=== PATIENT | male | born 1975 | race American Indian/Alaskan Native ===

== ENCOUNTER 2017-06-14 16:14 | Emergency (ER) | payer MEDICARE ==
[2017-06-14 17:41] LABS: Basophils % (Auto) 0.8 % (0.0-1.8); Hematocrit 45.1 % (35.5-45.6); Hemoglobin 14.7 gm/dl (11.8-15.2); Mean Corpuscular HGB Conc 33 % (32-34); Mean Corpuscular Hemoglobin 27 pg (28-32); Mean Corpuscular Volume 82 fl (84-94); Platelet Count 246 K/mm3 (140-440); Red Blood Count 5.53 M/mm3 (3.65-5.03); Red Cell Distribution Width 15.6 % (13.2-15.2); White Blood Count 7.1 K/mm3 (4.5-11.0)
[2017-06-14 17:55] LABS: INR 0.99 (0.87-1.13); Partial Thromboplastin Time 28.7 Sec. (24.2-36.6)
[2017-06-14 18:02] LABS: Anion Gap 19 mmol/L; BUN/Creatinine Ratio 21; Blood Urea Nitrogen 19 mg/dL (9-20); Calcium 9.2 mg/dL (8.4-10.2); Carbon Dioxide 23 mmol/L (22-30); Chloride 99.7 mmol/L (98-107); Glucose 131 mg/dL (75-100); Potassium 4.1 mmol/L (3.6-5.0); Sodium 138 mmol/L (137-145)
--- NOTE | 2017-06-14 20:15 | Cat Scan Report ---
FINAL REPORT PROCEDURE: CT HEAD/BRAIN WO CON TECHNIQUE: Computerized tomography of the head was performed without contrast material. HISTORY: neuro deficits \T\lt; 6hrs or sx present upon awakening COMPARISON: No prior studies are available for comparison. FINDINGS: Right middle cerebral artery sylvian branches appear asymmetrically increased in density compared to the left side. Although this may be artifactual, cannot fully exclude acute thrombus. There is no evidence of parenchymal edema, hemorrhage, and intracranial mass, or hydrocephalus. Calvarium is intact. Visualized paranasal sinuses and mastoids are aerated. IMPRESSION: Right middle cerebral artery sylvian branches appear increased in density compared to the left side. Although this may be artifactual, this can be seen with thrombus. No CT evidence of parenchymal edema at this time. Evaluation with MRI could be obtained as indicated for further evaluation. Findings were discussed with Dr. Aceves by telephone at 7:10 p.m. central standard time on 06/14/2017
--- NOTE | 2017-06-14 22:00 | Emergency Department Report ---
ED General Adult HPI - General Chief complaint: Neuro Symptoms/Deficit Stated complaint: FACIAL DROOPING Time Seen by Provider: 06/14/17 21:54 Source: patient Mode of arrival: Ambulatory Limitations: No Limitations - History of Present Illness Initial comments: is a 42-year-old [place] male with history of hypertension CHF and cardiomyopathy with a defibrillator and hyperlipidemia were sensitive the ER with left-sided facial drooping on the left side of his mouth. Patient also states she was having drooling from the left side of his mouth. He states the patient has improved but still has a slightly different sensations of left side of his mouth. Patient states he also had a little bit of delayed speech earlier in the day . He states he went to his primary care early to see evening and was sent to the ER for further evaluation. . Last known well as with 12 noon today. Patient Denies chest pain or unsteady gait. patient denies weakness to any of his extremities. Patient is a&Ox4 -: Sudden Time: 12:00 Location: face Severity scale (0 -10): 10 Consistency: constant, other (patient states the patient has improved) Improves with: rest Worsens with: none Associated Symptoms: denies other symptoms Treatments Prior to Arrival: none - Related Data Previous Rx's Medication Instructions Recorded Last Taken Type Famotidine [Pepcid] 20 mg PO BID #20 tablet 11/29/14 Unknown Rx Loratadine [Claritin] 10 mg PO DAILY #30 tablet 11/29/14 Unknown Rx predniSONE [Deltasone] 40 mg PO QDAY #10 tab 11/29/14 Unknown Rx methylPREDNISolone [Medrol] 4 mg PO DAILY #1 tab.ds.pk 06/15/17 Unknown Rx valACYclovir [Valtrex] 1,000 mg PO TID #21 tablet 06/15/17 Unknown Rx Allergies Allergy/AdvReac Type Severity Reaction Status Date / Time No Known Allergies Allergy Unverified 11/29/14 04:09 ED Review of Systems ROS: Stated complaint: FACIAL DROOPING Other details as noted in HPI Comment: All other systems reviewed and negative Constitutional: no symptoms reported Eyes: as per HPI ENT: as per HPI Respiratory: no symptoms reported, see HPI Cardiovascular: as per HPI Endocrine: no symptoms reported Gastrointestinal: as per HPI Genitourinary: as per HPI Musculoskeletal: as per HPI Skin: as per HPI Neurological: as per HPI, other (patient complains of facial drooping) Psychiatric: as per HPI Hematological/Lymphatic: as per HPI ED Past Medical Hx - Past Medical History Previous Medical History?: Yes Hx Hypertension: Yes Hx CVA: No Hx Heart Attack/AMI: No Hx Congestive Heart Failure: Yes Hx Diabetes: No Hx Deep Vein Thrombosis: Yes (left DVT 2016) Hx Pulmonary Embolism: No Hx GERD: No Additional medical history: CARDIOMYOPATHY - Surgical History Past Surgical History?: Yes Additional Surgical History: DEFIBRILATOR, 2 STENT URETHRA - Social History Smoking Status: Never Smoker Substance Use Type: None - Medications Home Medications: Home Medications Medication Instructions Recorded Confirmed Last Taken Type Famotidine [Pepcid] 20 mg PO BID #20 tablet 11/29/14 Unknown Rx Loratadine [Claritin] 10 mg PO DAILY #30 tablet 11/29/14 Unknown Rx predniSONE [Deltasone] 40 mg PO QDAY #10 tab 11/29/14 Unknown Rx methylPREDNISolone [Medrol] 4 mg PO DAILY #1 tab.ds.pk 06/15/17 Unknown Rx valACYclovir [Valtrex] 1,000 mg PO TID #21 tablet 06/15/17 Unknown Rx ED Physical Exam - General Limitations: No Limitations General appearance: alert, in no apparent distress - Head Head exam: Present: atraumatic, normocephalic - Eye Eye exam: Present: normal appearance - ENT ENT exam: Present: mucous membranes moist - Neck Neck exam: Present: normal inspection - Respiratory Respiratory exam: Present: normal lung sounds bilaterally. Absent: respiratory distress - Cardiovascular Cardiovascular Exam: Present: regular rate, normal rhythm. Absent: systolic murmur, diastolic murmur, rubs, gallop - GI/Abdominal GI/Abdominal exam: Present: soft, normal bowel sounds - Rectal Rectal exam: Present: deferred - Extremities Exam Extremities exam: Present: normal inspection - Back Exam Back exam: Present: normal inspection - Neurological Exam Neurological exam: Present: alert, oriented X3, CN II-XII intact, normal gait, motor sensory deficit, reflexes normal, other (no facial droop noted) - Psychiatric Psychiatric exam: Present: normal affect, normal mood - Skin Skin exam: Present: warm, dry, intact, normal color. Absent: rash ED Course Vital Signs 06/14/17 06/14/17 06/14/17 16:19 16:34 19:44 Temperature 99.1 F Pulse Rate 99 H 97 H 76 Respiratory 16 17 Rate Blood Pressure 146/82 146/82 O2 Sat by Pulse 98 100 95 Oximetry 06/14/17 06/14/17 06/14/17 19:51 20:00 20:05 Temperature 97.2 F L Pulse Rate 84 80 Respiratory 21 20 Rate Blood Pressure 145/89 O2 Sat by Pulse 94 94 Oximetry 06/14/17 06/14/17 06/14/17 20:11 20:21 20:31 Temperature Pulse Rate 78 80 85 Respiratory 17 17 10 L Rate Blood Pressure 145/89 145/89 145/89 O2 Sat by Pulse 96 96 98 Oximetry 06/14/17 06/14/17 06/14/17 20:41 20:51 21:00 Temperature Pulse Rate 78 80 77 Respiratory 19 17 19 Rate Blood Pressure 145/89 145/89 143/82 O2 Sat by Pulse 95 96 94 Oximetry 06/14/17 06/14/17 06/14/17 21:11 21:21 21:31 Temperature Pulse Rate 80 75 72 Respiratory 18 17 19 Rate Blood Pressure 143/82 143/82 143/82 O2 Sat by Pulse 97 97 98 Oximetry 06/14/17 06/14/17 06/14/17 21:41 21:51 22:00 Temperature Pulse Rate 73 77 80 Respiratory 19 15 20 Rate Blood Pressure 143/82 143/82 161/97 O2 Sat by Pulse 97 100 94 Oximetry 06/14/17 06/14/17 06/14/17 22:11 22:21 22:31 Temperature Pulse Rate 81 82 84 Respiratory 18 18 20 Rate Blood Pressure 161/97 161/97 161/97 O2 Sat by Pulse 98 98 97 Oximetry 06/14/17 06/14/17 06/14/17 22:41 22:51 23:51 Temperature Pulse Rate 82 82 Respiratory 23 21 Rate Blood Pressure 161/97 161/97 161/92 O2 Sat by Pulse 97 95 Oximetry 06/14/17 23:57 Temperature 97.5 F L Pulse Rate Respiratory Rate Blood Pressure O2 Sat by Pulse Oximetry ED Medical Decision Making - Lab Data Result diagrams: 06/14/17 17:04 06/14/17 17:04 - Radiology Data Radiology results: report reviewed - Medical Decision Making I discussed this patient with [facility] neuro/stroke team. CTA of the patient's head negative. Patient stable for discharge. We'll give patient prescriptions for Dorsey's palsy. Patient will see a neurologist and a uniform maker. - Differential Diagnosis cva. dorsey palsy, hyperglycemia, dehydration. Critical care attestation.: If time is entered above; I have spent that time in minutes in the direct care of this critically ill patient, excluding procedure time. ED Disposition Clinical Impression: Facial droop, Dorsey's palsy Disposition: - TO HOME OR SELFCARE Is pt being admited?: No Does the pt Need Aspirin: No Condition: Stable Instructions: Dorsey Palsy (ED) Additional Instructions: Patient about primary care in 3-5 days. Patient to see neurologist within 2-3 days. Patient to see uniform maker adiel. Patient To start taking 81 mg aspirin everyday. Patient to take meds as directed patient to take Tylenol or ibuprofen when necessary for pain. patient increase water. Patient to return to ER if condition worsens. Prescriptions: methylPREDNISolone [Medrol] 4 mg PO DAILY #1 tab.ds.pk valACYclovir [Valtrex] 1,000 mg PO TID #21 tablet Referrals: PRIMARY CARE, [Primary Care Provider] - 3-5 Days Forms: Work/School Release Form(ED) Time of Disposition: 00:37
--- NOTE | 2017-06-14 23:48 | Cat Scan Report ---
FINAL REPORT PROCEDURE: CT ANGIO HEAD TECHNIQUE: Computerized tomographic angiography of the head was performed after the IV injection of iodinated nonionic contrast including image processing. The image data was postprocessed using 2-dimensional multiplanar reformatted (MPR) and 3-dimensional (MIP and/or volume rendered) techniques. HISTORY: left facial droop COMPARISON: No prior studies are available for comparison. FINDINGS: Cerebrum: No evidence of hemorrhage, acute ischemia or mass. Cerebellum: No evidence of hemorrhage, acute ischemia or mass. Subarachnoid spaces and ventricles: Normal. Intracranial vessels: Carotid siphon: A 2 millimeter white neck aneurysm is noted arising from the right internal carotid proximal to the supraclinoid portion. Anterior cerebral: Normal. Middle cerebral: Normal. Posterior cerebral:Normal. Vertebral arteries including basilar: Normal. Aneurysms: None. Dural sinuses: Normal. 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 Otherwise negative study.
[2017-06-15] MEDS ORDERED: VALTREX PO ONE (00:29)
[2017-06-15 01:35] VITALS: BP 176/94
== END 2017-06-15 01:22 | disposition home or self-care (01) ==
LOC: ED 16:14
DX: G51.0 Bell's palsy (principal); I10 Essential (primary) hypertension; I50.9 Heart failure, unspecified
CPT/HCPCS: 36415; 70450; 70496; 80048; 84484; 85025; 85610; 85670; 85730; 93005; 93010; 96372; 99285; J2930; Q9967